=== PATIENT | female | born 1965 | race Caucasian/White ===

== ENCOUNTER → 2017-12-19 | Outpatient (CLI) | payer OTHER | END | disposition home or self-care (01) | LOC: CDC 11:15 | DX: Z01.810 Encounter for preprocedural cardiovascular examination (principal); K80.20 Calculus of gallbladder without cholecystitis without obstruction | CPT/HCPCS: 93000 ==

== ENCOUNTER 2018-01-10 06:13 | Day surgery (SDC) | payer OTHER ==
[~2018-01-10] VITALS: Ht 170.2 cm; Wt 87.0 kg
[~2018-01-10 06:13] MED LIST: CLARITIN,ALAVAR10 MG PO; FLONASE SENSIM5.9 ML BOTH NARES; PROTONIX40 MG PO; ZESTRIL10 MG PO
[2018-01-10 07:21] VITALS: BP 165/83
[2018-01-10] MEDS ORDERED: HYDROCODON-ACE1 EAC7 PO (11:02)
[2018-01-10 12:48] VITALS: BP 157/74
[2018-01-10 13:48] VITALS: BP 131/58
[2018-01-10 15:17] VITALS: BP 119/55
== END 2018-01-10 15:23 | disposition home or self-care (01) ==
LOC: SDC 06:13
DX: K80.10 Calculus of gallbladder with chronic cholecystitis without obstruction (principal); K75.81 Nonalcoholic steatohepatitis (NASH); I10 Essential (primary) hypertension; K21.9 Gastro-esophageal reflux disease without esophagitis
CPT/HCPCS: 88304; 88307; 88313; J0131; J0690; J1100; J1170; J2250; J2405; J2710; J2765; J3010; J7643; S0020